=== PATIENT | female | born 1935 | race Caucasian/White ===

== ENCOUNTER 2018-12-05 08:20 | Inpatient (IN) | payer MEDICARE, MEDICAID ==
[~2018-12-05] VITALS: Ht 157.5 cm; Wt 52.6 kg
[2018-12-05] VITALS (10 sets, daily range): BP systolic 111–169; BP diastolic 58–79
[~2018-12-05 08:20] MED LIST: AMLO5TAB88 PO; ASPI-1159 PO; LOSA100T14 PO
[2018-12-05] MEDS ORDERED: SIMV40TA5 PO (10:19)
[2018-12-05] MEDS ORDERED: SITA100T11 PO (10:19)
[2018-12-05] MEDS ORDERED: LEVO500T2 PO (10:19)
[2018-12-05] MEDS ORDERED: LOSA100T14 PO (10:19)
[2018-12-05] MEDS ORDERED: MINO2.5T2 PO (10:19)
[2018-12-05] MEDS ORDERED: CHOL100046 PO (10:19)
[2018-12-05] MEDS ORDERED: METF-414 PO (10:19)
[2018-12-05] MEDS ORDERED: AMLO5TAB88 PO (10:19)
[2018-12-05] MEDS ORDERED: LIDOCAINE HCL 1% 20ML VIAL (Pyxis) INJ ONE (12:43)
[2018-12-05] MEDS ORDERED: IODIXANOL 320MG/ML 100 ML BOTTLE IV ONE (12:43)
[2018-12-05] MEDS ORDERED: FENTANYL CITRATE/PF 50MCG/ML 2ML VIAL ONE (12:57)
[2018-12-05] MEDS ORDERED: MIDAZOLAM HCL 2 MG/2 ML VIAL ONE (12:57)
[2018-12-05] MEDS ORDERED: IOHEXOL-300 100 ML BOTTLE ONE (13:39)
[2018-12-05] MEDS ORDERED: ASPIRIN 325MG TABLET ONE (14:14)
[2018-12-05] MEDS ORDERED: CLOPIDOGREL 75MG TABLET ONE (14:15)
[2018-12-05] MEDS ORDERED: ACETAMINOPHEN 325MG TABLET PO PRN (14:15)
[2018-12-05] MEDS ORDERED: ATROPINE SULFATE 1MG/10ML SYR IV PRN (14:15)
[2018-12-05] MEDS ORDERED: HEPARIN SODIUM 1,000 UNIT/1ML VIAL IV ONE (14:48)
[2018-12-05] MEDS ORDERED: ENALAPRIL 2.5MG/2ML VIAL 2ML IV PRN (18:15)
[2018-12-05] MEDS: AMLODIPINE 5MG TABLET PO SCH (18:30)
[2018-12-05] MEDS ORDERED: CLONIDINE 0.1MG TABLET PO ONE (20:30)
[2018-12-05] MEDS ORDERED: MEDICATION NOT ON FORMULARY EA (Losartan Potassium 100 MG) PO SCH (21:00)
[2018-12-05] MEDS ORDERED: LOSARTAN POTASSIUM 100 MG TABLET PO SCH (21:00)
[2018-12-05] MEDS ORDERED: MEDICATION NOT ON FORMULARY EA (Simvastatin 40 MG) PO SCH (21:00)
[2018-12-05] MEDS ORDERED: ATORVASTATIN CALCIUM 20MG TABLET PO SCH (21:00)
[2018-12-05] MEDS ORDERED: CLONIDINE 0.1MG TABLET PO PRN (23:00)
[2018-12-06] VITALS (7 sets, daily range): BP systolic 128–149; BP diastolic 65–111
[2018-12-06 07:15] LABS: BASOPHILS % 0.3 % (0.0-2.0); EOSINOPHILS % 0.3 % (0.0-5.0); HEMATOCRIT. 34.6 % (36.0-48.0); HEMOGLOBIN. 11.7 g/dL (12.0-16.0); LYMPHOCYTES % 9.1 % (20.0-50.0); MEAN CORPUSCULAR HEMOGLOBIN 29.8 pg (28.0-32.0); MEAN PLATELET VOLUME 8.2 fl (7.4-10.4); MONOCYTES % 8.6 % (2.0-8.0); NEUTROPHILS % 81.7 % (40.0-76.0); PLATELET 295 x1000/uL (130-400); RED BLOOD CELL COUNT 3.93 mill/uL (4.2-5.4)
[2018-12-06 07:52] LABS: CHLORIDE 99 mEq/L (98-107)
[2018-12-06] MEDS ORDERED: AMLODIPINE 5MG TABLET PO SCH (09:00)
[2018-12-06] MEDS ORDERED: ASPIRIN 325MG TABLET PO SCH (09:00)
[2018-12-06] MEDS ORDERED: MEDICATION NOT ON FORMULARY EA (Amlodipine Besylate 5 MG) PO SCH (09:00)
[2018-12-06] MEDS ORDERED: MINOXIDIL 2.5MG TABLET PO SCH (09:00)
[2018-12-06] MEDS ORDERED: MINOXIDIL 2.5 MG PO SCH (09:00)
[2018-12-06] MEDS: AMLODIPINE 5MG TABLET PO SCH (09:18)
== END 2018-12-06 11:07 | disposition home or self-care (01) | DRG 253 ==
LOC: CCL 08:20 → 3WST 08:21
PROVIDERS: ADMIT Internal Medicine; ATTEND Specialist
PROC: B41F1ZZ Fluoroscopy of Right Lower Extremity Arteries using Low Osmolar Contrast (ICD-10-PCS; principal; 2018-12-05)
PROC: 047P3ZZ Dilation of Right Anterior Tibial Artery, Percutaneous Approach (ICD-10-PCS; 2018-12-05)
PROC: 047M3ZZ Dilation of Right Popliteal Artery, Percutaneous Approach (ICD-10-PCS; 2018-12-05)
DX: E11.51 Type 2 diabetes mellitus with diabetic peripheral angiopathy without gangrene (principal); L97.419 Non-pressure chronic ulcer of right heel and midfoot with unspecified severity; I70.234 Atherosclerosis of native arteries of right leg with ulceration of heel and midfoot; I25.10 Atherosclerotic heart disease of native coronary artery without angina pectoris; I11.9 Hypertensive heart disease without heart failure; E78.5 Hyperlipidemia, unspecified; E11.621 Type 2 diabetes mellitus with foot ulcer; F03.90 Unspecified dementia, unspecified severity, without behavioral disturbance, psychotic disturbance, mood disturbance, and anxiety; Z89.432 Acquired absence of left foot; I25.2 Old myocardial infarction; Z88.0 Allergy status to penicillin
CPT/HCPCS: 36415; 37228; 75710; 80048; 82962; 85347; C1725; C1760; C1769; C1893; C1894; J1644; J2250; J3010; J3490; Q9967; A4315

== ENCOUNTER 2018-12-07 20:52 | Inpatient (IN) | payer MEDICARE, MEDICAID ==
[~2018-12-07] VITALS: Ht 154.9 cm; Wt 57.8 kg
[~2018-12-07 20:52] MED LIST changes: -ASPI-1159 PO; +CHOL100046 PO; +LEVO500T2 PO; +METF-414 PO; +MINO2.5T2 PO; +SIMV40TA5 PO; +SITA100T11 PO
[2018-12-07] MEDS ORDERED: SODIUM CHLORIDE 0.9% 1,000 ML IV ONE (22:48)
[2018-12-07 23:35] LABS: HEMATOCRIT. 35.2 % (36.0-48.0); HEMOGLOBIN. 11.8 g/dL (12.0-16.0); MEAN CORPUSCULAR HEMOGLOBIN 29.8 pg (28.0-32.0); MEAN PLATELET VOLUME 8.4 fl (7.4-10.4); PLATELET 333 x1000/uL (130-400); RED BLOOD CELL COUNT 3.95 mill/uL (4.2-5.4); RED CELL DISTRIBUTION WIDTH 13.1 % (11.6-14.6)
[2018-12-07 23:38] LABS: INR 1.1; PROTHROMBIN TIME 11.3 sec (9.1-11.1)
[2018-12-07 23:39] LABS: CHLORIDE 95 mEq/L (98-107)
[2018-12-07 23:48] LABS: BETA HYDROXYBUTYRATE 0.6 mMol/L (0.0-0.3)
[2018-12-08] MEDS ORDERED: LORAZEPAM 2MG/ML CPJ IV ONE
[2018-12-08] MEDS ORDERED: SODIUM CHLORIDE 0.9% 1,000 ML IV ONE
[2018-12-08] MEDS ORDERED: INSULIN REGULAR (HUMULIN R) 300UNITS/3ML SUBCUT ONE ×2 (00:30→02:30)
[2018-12-08 00:39] LABS: CLARITY URINE CLEAR (CLEAR); COLOR URINE YELLOW (YELLOW); KETONES URINE TRACE (NEGATIVE); LEUKOCYTE ESTERASE URINE NEGATIVE (NEGATIVE); NITRITE URINE POSITIVE (NEGATIVE); OCCULT BLOOD URINE 1+ (NEGATIVE); PROTEIN URINE 2+ (NEGATIVE); SPECIFIC GRAVITY URINE 1.027 (1.005-1.030); UROBILINOGEN URINE 0.2 E.U./dL (0.2-1.0)
[2018-12-08] MEDS: AZTREONAM 2 GM in DEXT 5% WATER 100 ML IV SCH ×4 (00:44→17:53)
[2018-12-08 01:49] LABS: PLATELET ESTIMATE NORMAL
[2018-12-08] MEDS ORDERED: CLONIDINE 0.1MG TABLET PO PRN (13:15)
[2018-12-08] MEDS ORDERED: MAGNESIUM/ALUMINUM HYDROXIDE/SIMETHICONE 30ML UDC PO PRN (13:15)
[2018-12-08] MEDS ORDERED: DEXTROSE 50% WATER 50ML SYRINGE IV PRN (13:15)
[2018-12-08] MEDS ORDERED: VANCOMYCIN 1 G PREMIX 200 ML IV SCH ×2 (13:15)
[2018-12-08] MEDS ORDERED: ONDANSETRON HCL 4MG/2ML INJ IV PRN (13:15)
[2018-12-08] MEDS ORDERED: DIPHENHYDRAMINE 50MG/ML VIAL IV PRN (13:15)
[2018-12-08] MEDS: ACETAMINOPHEN 325MG TABLET PO PRN (15:58)
[2018-12-08] MEDS: VANCOMYCIN 500 MG PREMIX 100 ML IV SCH ×2 (16:30→17:55)
[2018-12-08] MEDS ORDERED: AZTREONAM 2 GM in DEXT 5% WATER 100 ML IV NR (17:00)
[2018-12-08] MEDS: BLOOD SUGAR DIAGNOSTIC STRIP TEST SCH (17:00)
[2018-12-08] MEDS ORDERED: INSULIN GLARGINE UD 100 UNITS/ML SYR SUBCUT SCH (22:00)
[2018-12-09 04:24] LABS: BASOPHILS % 0.3 % (0.0-2.0); EOSINOPHILS % 0.4 % (0.0-5.0); HEMATOCRIT. 34.2 % (36.0-48.0); HEMOGLOBIN. 11.4 g/dL (12.0-16.0); LYMPHOCYTES % 7.5 % (20.0-50.0); MEAN CORPUSCULAR HEMOGLOBIN 29.6 pg (28.0-32.0); MEAN CORPUSCULAR VOLUME 88.7 fL (81.0-99.0); MEAN PLATELET VOLUME 8.1 fl (7.4-10.4); MONOCYTES % 6.5 % (2.0-8.0); NEUTROPHILS % 85.3 % (40.0-76.0); PLATELET 298 x1000/uL (130-400); RED BLOOD CELL COUNT 3.85 mill/uL (4.2-5.4)
[2018-12-09 04:32] LABS: CHLORIDE 106 mEq/L (98-107)
[2018-12-09] MEDS ORDERED: AZTREONAM 2 GM in DEXT 5% WATER 100 ML IV SCH (05:00)
[2018-12-09] MEDS ORDERED: AMLODIPINE 5MG TABLET PO SCH (09:00)
[2018-12-09] MEDS ORDERED: LEVOFLOXACIN 250MG PREMIX 50 ML IV SCH (11:00)
[2018-12-09] MEDS ORDERED: LEVOFLOXACIN 500MG PREMIX 100 ML IV SCH (11:30)
[2018-12-09] MEDS: BLOOD SUGAR DIAGNOSTIC STRIP TEST SCH ×3 (12:10→21:18)
[2018-12-09 12:35] VITALS: BP 164/65
[2018-12-09] MEDS: ACETAMINOPHEN 325MG TABLET PO PRN (13:11)
[2018-12-09] MEDS: LORAZEPAM 2MG/ML CPJ IV PRN (13:13)
[2018-12-09] MEDS ORDERED: DIATR MEGLU/DIATRIZOATE SOLN 30ML PO SCH (13:15)
[2018-12-09] MEDS ORDERED: LEVOFLOXACIN 750MG PREMIX 150 ML IV SCH (13:30)
[2018-12-09] MEDS: INSULIN LISPRO 100 UNITS/ML SUBCUT SCH ×2 (13:31→18:03)
[2018-12-09] MEDS ORDERED: LACTULOSE 20G/30ML UDC PO SCH (14:00)
[2018-12-09 16:00] VITALS: BP 158/66
[2018-12-09] MEDS: VANCOMYCIN 500 MG PREMIX 100 ML IV SCH ×2 (16:00→21:18)
[2018-12-09] MEDS ORDERED: IOHEXOL-300 100 ML BOTTLE ONE (17:17)
[2018-12-09] MEDS: ENOXAPARIN 40MG/0.4ML SYR SUBCUT SCH (17:33)
[2018-12-09] MEDS: AMLODIPINE 5MG TABLET PO SCH (17:34)
[2018-12-09] MEDS: SODIUM CHLORIDE 0.9% 1,000 ML IV SCH ×3 (17:35→19:11)
[2018-12-09] MEDS: HYDROCODONE/ACETAMINOPHEN 5/325MG TABLET PO PRN (19:09)
[2018-12-09 20:00] VITALS: BP 143/60
[2018-12-09] MEDS ORDERED: CEFEPIME 2,000 MG in DEXT 5% WATER 100 ML IV SCH (20:00)
[2018-12-09] MEDS: FAMOTIDINE 20MG TABLET PO SCH ×2 (21:18→21:19)
[2018-12-09] MEDS ORDERED: INSULIN GLARGINE UD 100 UNITS/ML SYR SUBCUT SCH (22:00)
[2018-12-10] VITALS: BP 147/79
[2018-12-10] MEDS: CEFEPIME 2,000 MG in DEXT 5% WATER 100 ML IV SCH ×3 (00:14→21:05)
[2018-12-10] MEDS: INSULIN LISPRO 100 UNITS/ML SUBCUT SCH ×5 (00:19→21:00)
[2018-12-10] MEDS: INSULIN GLARGINE UD 100 UNITS/ML SYR SUBCUT SCH ×3 (00:20→22:48)
[2018-12-10] MEDS: HYDROCODONE/ACETAMINOPHEN 5/325MG TABLET PO PRN ×2 (01:53→12:04)
[2018-12-10] MEDS: SODIUM CHLORIDE 0.9% 1,000 ML IV SCH ×2 (03:12→16:35)
[2018-12-10] MEDS: LORAZEPAM 2MG/ML CPJ IV PRN ×2 (03:32→13:09)
[2018-12-10 04:00] VITALS: BP 147/76
[2018-12-10 05:49] LABS: BASOPHILS % 0.2 % (0.0-2.0); EOSINOPHILS % 2.9 % (0.0-5.0); HEMATOCRIT. 31.8 % (36.0-48.0); HEMOGLOBIN. 10.7 g/dL (12.0-16.0); LYMPHOCYTES % 12.3 % (20.0-50.0); MEAN CORPUSCULAR HEMOGLOBIN 29.9 pg (28.0-32.0); MEAN CORPUSCULAR VOLUME 88.4 fL (81.0-99.0); MEAN PLATELET VOLUME 8.2 fl (7.4-10.4); MONOCYTES % 9.3 % (2.0-8.0); NEUTROPHILS % 75.3 % (40.0-76.0); PLATELET 333 x1000/uL (130-400); RED CELL DISTRIBUTION WIDTH 12.7 % (11.6-14.6)
[2018-12-10 05:59] LABS: CHLORIDE 107 mEq/L (98-107)
[2018-12-10] MEDS: BLOOD SUGAR DIAGNOSTIC STRIP TEST SCH ×4 (06:35→21:06)
[2018-12-10 08:30] VITALS: BP 170/60
[2018-12-10] MEDS: AMLODIPINE 5MG TABLET PO SCH ×2 (09:04→17:48)
[2018-12-10] MEDS: DOCUSATE SODIUM SUGAR FREE 100MG/10ML UDC PO SCH (09:05)
[2018-12-10] MEDS: VANCOMYCIN 500 MG PREMIX 100 ML IV SCH (10:59)
[2018-12-10 11:57] VITALS: BP 118/58
[2018-12-10 16:00] VITALS: BP 126/48
[2018-12-10] MEDS: ENOXAPARIN 40MG/0.4ML SYR SUBCUT SCH (17:47)
[2018-12-10 20:00] VITALS: BP 165/66
[2018-12-10] MEDS: CARVEDILOL 3.125 MG TABLET PO SCH (21:06)
[2018-12-10] MEDS: FAMOTIDINE 20MG TABLET PO SCH (21:06)
[2018-12-11] VITALS: BP 139/51
[2018-12-11] MEDS ORDERED: VANCOMYCIN 1 G PREMIX 200 ML IV SCH (02:00)
[2018-12-11 04:00] VITALS: BP 147/66
[2018-12-11] MEDS: BLOOD SUGAR DIAGNOSTIC STRIP TEST SCH ×3 (06:40→17:10)
[2018-12-11] MEDS: INSULIN LISPRO 100 UNITS/ML SUBCUT SCH ×3 (06:40→17:24)
[2018-12-11 06:56] LABS: CHLORIDE 105 mEq/L (98-107)
[2018-12-11 07:08] LABS: LDL CHOLESTEROL 63 mg/dL (5-100)
[2018-12-11 07:09] LABS: HDL CHOLESTEROL 26 mg/dL (40-59)
[2018-12-11 07:12] LABS: T4 FREE 1.55 ng/dL (0.76-1.46)
[2018-12-11 07:42] LABS: HEMATOCRIT 30.9 % (36.0-48.0); HEMOGLOBIN 10.5 g/dL (12.0-16.0); MEAN CORPUSCULAR HEMOGLOBIN 29.8 pg (28.0-32.0); MEAN CORPUSCULAR VOLUME 87.9 fL (81.0-99.0); PLATELET 329 x1000/uL (130-400); RED BLOOD CELL COUNT 3.51 mill/uL (4.2-5.4); RED CELL DISTRIBUTION WIDTH 12.9 % (11.6-14.6)
[2018-12-11] MEDS: SODIUM CHLORIDE 0.9% 1,000 ML IV SCH (08:01)
[2018-12-11 08:38] VITALS: BP 164/63
[2018-12-11] MEDS: CEFEPIME 2,000 MG in DEXT 5% WATER 100 ML IV SCH (08:41)
[2018-12-11] MEDS: DOCUSATE SODIUM SUGAR FREE 100MG/10ML UDC PO SCH (08:48)
[2018-12-11] MEDS: CARVEDILOL 3.125 MG TABLET PO SCH (08:49)
[2018-12-11] MEDS: AMLODIPINE 5MG TABLET PO SCH (08:49)
[2018-12-11] MEDS: INSULIN GLARGINE UD 100 UNITS/ML SYR SUBCUT SCH (10:00)
[2018-12-11] MEDS ORDERED: POTASSIUM CHLORIDE 20MEQ TABLET SR PO NR (10:45)
[2018-12-11 12:00] VITALS: BP 146/73
[2018-12-11] MEDS: ACETAMINOPHEN 325MG TABLET PO PRN (13:01)
[2018-12-11 16:19] VITALS: BP 149/62
[2018-12-11] MEDS: ENOXAPARIN 40MG/0.4ML SYR SUBCUT SCH (17:18)
[2018-12-11 17:48] VITALS: BP 152/76
== END 2018-12-11 18:49 | disposition home or self-care (01) | DRG 871 ==
LOC: ER 20:52 → EDBEDREQTM 12-08 00:36 → EDBEDREQSVC 12-08 00:36 → EDBEDREQDT 12-08 00:36 → EDBEDREQ 12-08 00:36 → EDBEDREQTM 12-08 00:42 → 8WST 12-09 00:40 → EDBEDREQSVC 12-09 10:00 → ENRESERV 12-09 10:48
PROVIDERS: ADMIT Internal Medicine; ATTEND Internal Medicine
DX: A40.1 Sepsis due to streptococcus, group B (principal); G93.41 Metabolic encephalopathy; E43 Unspecified severe protein-calorie malnutrition; N39.0 Urinary tract infection, site not specified; M84.48XA Pathological fracture, other site, initial encounter for fracture; B95.5 Unspecified streptococcus as the cause of diseases classified elsewhere; H66.92 Otitis media, unspecified, left ear; H60.92 Unspecified otitis externa, left ear; D69.6 Thrombocytopenia, unspecified; E11.51 Type 2 diabetes mellitus with diabetic peripheral angiopathy without gangrene; E11.65 Type 2 diabetes mellitus with hyperglycemia; E78.5 Hyperlipidemia, unspecified; E87.6 Hypokalemia; F03.90 Unspecified dementia, unspecified severity, without behavioral disturbance, psychotic disturbance, mood disturbance, and anxiety; H44.521 Atrophy of globe, right eye; H70.92 Unspecified mastoiditis, left ear; I10 Essential (primary) hypertension; I51.3 Intracardiac thrombosis, not elsewhere classified; E11.621 Type 2 diabetes mellitus with foot ulcer; M43.17 Spondylolisthesis, lumbosacral region; J32.1 Chronic frontal sinusitis; K59.00 Constipation, unspecified; K82.8 Other specified diseases of gallbladder; K86.9 Disease of pancreas, unspecified; M81.0 Age-related osteoporosis without current pathological fracture; N61.0 Mastitis without abscess; Z86.718 Personal history of other venous thrombosis and embolism; Z88.0 Allergy status to penicillin; Z89.432 Acquired absence of left foot; Z68.24 Body mass index [BMI] 24.0-24.9, adult; Z79.2 Long term (current) use of antibiotics; Z79.899 Other long term (current) drug therapy
CPT/HCPCS: 36415; 70486; 71045; 74176; 74177; 80048; 80061; 80202; 82010; 82105; 82378; 82962; 83036; 83605; 83735; 83880; 83930; 84439; 84443; 84484; 85027; 86301; 87804; 93005; 93970; G0378; J0692; J1200; J1650; J1815; J1956; J2060; J2405; J3370; J3490; J7030; J7050; J7060; Q9963; Q9967

== ENCOUNTER 2019-06-11 08:48 | Inpatient (IN) | payer MEDICARE, MEDICAID ==
[2019-06-11] VITALS (15 sets, daily range): BP systolic 123–147; BP diastolic 48–73
[~2019-06-11] VITALS: Ht 157.5 cm; Wt 59.4 kg
[~2019-06-11 08:48] MED LIST changes: -LEVO500T2 PO; -LOSA100T14 PO; +LOSA100T32 PO
[2019-06-11] MEDS ORDERED: ASPI-1393 PO (10:33)
[2019-06-11] MEDS ORDERED: LIDOCAINE HCL 1% 20ML VIAL (Pyxis) INJ ONE (10:34)
[2019-06-11] MEDS ORDERED: IODIXANOL 320MG/ML 100 ML BOTTLE IV ONE (10:35)
[2019-06-11] MEDS ORDERED: FENTANYL CITRATE/PF 50MCG/ML 2ML VIAL ONE (10:37)
[2019-06-11] MEDS ORDERED: MIDAZOLAM HCL 2 MG/2 ML VIAL ONE (10:37)
[2019-06-11] MEDS ORDERED: ASPIRIN 325MG EC TABLET PO ONE (12:25)
[2019-06-11] MEDS ORDERED: CLOPIDOGREL 75MG TABLET ONE (12:26)
[2019-06-11] MEDS ORDERED: ATROPINE SULFATE 1MG/10ML SYR IV PRN (12:45)
[2019-06-11] MEDS ORDERED: ACETAMINOPHEN 325MG TABLET PO PRN (12:45)
[2019-06-11] MEDS ORDERED: ONDANSETRON HCL 4MG/2ML INJ IV PRN (12:45)
[2019-06-11] MEDS ORDERED: DEXTROSE 50% WATER 50ML SYRINGE IV PRN (16:00)
[2019-06-11] MEDS: BLOOD SUGAR DIAGNOSTIC STRIP TEST SCH ×2 (17:21→22:40)
[2019-06-11] MEDS: INSULIN LISPRO 100 UNITS/ML SUBCUT SCH ×2 (17:36→22:53)
[2019-06-11] MEDS ORDERED: ATORVASTATIN CALCIUM 20MG TABLET PO SCH (21:00)
[2019-06-11] MEDS ORDERED: LOSARTAN POTASSIUM 100 MG TABLET PO SCH (21:00)
[2019-06-12] VITALS (8 sets, daily range): BP systolic 106–151; BP diastolic 44–60
[2019-06-12] MEDS: BLOOD SUGAR DIAGNOSTIC STRIP TEST SCH (05:41)
[2019-06-12 05:49] LABS: CHLORIDE 107 mEq/L (98-107)
[2019-06-12 08:09] LABS: BASOPHILS % 0.3 % (0.0-2.0); EOSINOPHILS % 1.2 % (0.0-5.0); HEMATOCRIT. 38.6 % (36.0-48.0); HEMOGLOBIN. 13.2 g/dL (12.0-16.0); LYMPHOCYTES % 18.9 % (20.0-50.0); MEAN CORPUSCULAR HEMOGLOBIN 29.1 pg (28.0-32.0); MEAN CORPUSCULAR VOLUME 85.5 fL (81.0-99.0); MEAN PLATELET VOLUME 8.7 fl (7.4-10.4); MONOCYTES % 7.4 % (2.0-8.0); NEUTROPHILS % 72.2 % (40.0-76.0); PLATELET 230 x1000/uL (130-400); RED BLOOD CELL COUNT 4.52 mill/uL (4.2-5.4); RED CELL DISTRIBUTION WIDTH 13.8 % (11.6-14.6)
[2019-06-12] MEDS: INSULIN LISPRO 100 UNITS/ML SUBCUT SCH (08:28)
[2019-06-12] MEDS ORDERED: AMLODIPINE 5MG TABLET PO SCH (09:00)
[2019-06-12] MEDS ORDERED: ASPIRIN 325MG TABLET PO SCH (09:00)
[2019-06-12] MEDS ORDERED: CLOPIDOGREL 75MG TABLET PO SCH (09:00)
[2019-06-12] MEDS ORDERED: MEDICATION NOT ON FORMULARY EA (Simvastatin 40 MG) PO SCH (09:00)
[2019-06-12] MEDS ORDERED: MINOXIDIL 2.5MG TABLET PO SCH (09:00)
== END 2019-06-12 10:55 | disposition home or self-care (01) | DRG 253 ==
LOC: CCL 08:48 → 3WST 08:49
PROVIDERS: ADMIT Internal Medicine; ATTEND Specialist
PROC: 047T34Z Dilation of Right Peroneal Artery with Drug-eluting Intraluminal Device, Percutaneous Approach (ICD-10-PCS; principal; 2019-06-11)
PROC: 047M34Z Dilation of Right Popliteal Artery with Drug-eluting Intraluminal Device, Percutaneous Approach (ICD-10-PCS; 2019-06-11)
PROC: 047P35Z Dilation of Right Anterior Tibial Artery with Two Drug-eluting Intraluminal Devices, Percutaneous Approach (ICD-10-PCS; 2019-06-11)
DX: E11.51 Type 2 diabetes mellitus with diabetic peripheral angiopathy without gangrene (principal); G93.40 Encephalopathy, unspecified; E78.5 Hyperlipidemia, unspecified; F03.90 Unspecified dementia, unspecified severity, without behavioral disturbance, psychotic disturbance, mood disturbance, and anxiety; I11.9 Hypertensive heart disease without heart failure; I25.10 Atherosclerotic heart disease of native coronary artery without angina pectoris; I70.201 Unspecified atherosclerosis of native arteries of extremities, right leg; J44.9 Chronic obstructive pulmonary disease, unspecified; K86.9 Disease of pancreas, unspecified; I25.2 Old myocardial infarction; Z89.432 Acquired absence of left foot; Z88.0 Allergy status to penicillin; Z79.899 Other long term (current) drug therapy
CPT/HCPCS: 36415; 37230; 37234; 75710; 80048; 82962; 85347; 87070; C1725; C1760; C1769; C1874; C1887; C1893; C1894; J1644; J1815; J2250; J2405; J3010; J3490; Q9967

== ENCOUNTER 2020-04-04 10:43 | Emergency (ER) | payer MEDICARE, MEDICAID ==
[~2020-04-04] VITALS: Ht 157.5 cm; Wt 60.0 kg
[~2020-04-04 10:43] MED LIST changes: +ASPI-1497 PO; +SIMV-46 PO; -SIMV40TA5 PO; -SITA100T11 PO
[2020-04-04 10:44] VITALS: BP 157/52
== END 2020-04-04 12:58 | disposition home or self-care (01) ==
LOC: ER 10:43
DX: R05 Cough (principal); E78.00 Pure hypercholesterolemia, unspecified; E11.9 Type 2 diabetes mellitus without complications; I10 Essential (primary) hypertension; Z98.890 Other specified postprocedural states; Z79.899 Other long term (current) drug therapy; Z88.0 Allergy status to penicillin
CPT/HCPCS: 71045; 87635; 99284; C9803

== ENCOUNTER 2020-06-28 17:08 | Inpatient (IN) | payer MEDICARE, MEDICAID ==
[~2020-06-28] VITALS: Ht 162.6 cm; Wt 64.1 kg
[2020-06-28 19:04] LABS: BASOPHILS % 0.4 % (0.0-2.0); HEMATOCRIT. 34.3 % (36.0-48.0); HEMOGLOBIN. 11.3 g/dL (12.0-16.0); LYMPHOCYTES % 19.2 % (20.0-50.0); MEAN CORPUSCULAR HEMOGLOBIN 27.6 pg (28.0-32.0); MEAN CORPUSCULAR VOLUME 83.8 fL (81.0-99.0); MEAN PLATELET VOLUME 7.7 fl (7.4-10.4); MONOCYTES % 6.5 % (2.0-8.0); NEUTROPHILS % 71.9 % (40.0-76.0); PLATELET 400 x1000/uL (130-400); RED CELL DISTRIBUTION WIDTH 15.9 % (11.6-14.6)
[2020-06-28 19:10] LABS: CHLORIDE 105 mEq/L (98-107)
[2020-06-28] MEDS ORDERED: DEXTROSE 50% WATER 50ML SYRINGE IV PRN (20:45)
[2020-06-28] MEDS ORDERED: CLONIDINE 0.1MG TABLET PO PRN (20:45)
[2020-06-28] MEDS ORDERED: ACETAMINOPHEN 325MG TABLET PO PRN (20:45)
[2020-06-28] MEDS ORDERED: ONDANSETRON HCL 4MG/2ML INJ IV PRN (20:45)
[2020-06-28] MEDS: CARVEDILOL 3.125 MG TABLET PO SCH (21:00)
[2020-06-28] MEDS: HEPARIN 5000 UNITS/ML VIAL SUBCUT SCH (21:00)
[2020-06-28] MEDS ORDERED: TRAZODONE HCL 50MG TABLET PO PRN (21:00)
[2020-06-28] MEDS ORDERED: INSULIN GLARGINE UD 100 UNITS/ML SYR SUBCUT SCH (22:00)
[2020-06-28] MEDS: BLOOD SUGAR DIAGNOSTIC STRIP TEST SCH (22:00)
[2020-06-28] MEDS: INSULIN LISPRO 100 UNITS/ML SUBCUT SCH (22:05)
[2020-06-28] MEDS: FUROSEMIDE 40MG/4ML VIAL IV SCH (22:05)
[2020-06-29] VITALS (7 sets, daily range): BP systolic 138–173; BP diastolic 54–65
[2020-06-29] MEDS: FUROSEMIDE 40MG/4ML VIAL IV SCH ×3 (06:40→17:24)
[2020-06-29] MEDS: BLOOD SUGAR DIAGNOSTIC STRIP TEST SCH ×5 (06:41→20:25)
[2020-06-29] MEDS: INSULIN LISPRO 100 UNITS/ML SUBCUT SCH ×5 (06:41→21:40)
[2020-06-29] MEDS: CARVEDILOL 3.125 MG TABLET PO SCH (09:35)
[2020-06-29] MEDS: HEPARIN 5000 UNITS/ML VIAL SUBCUT SCH ×2 (09:36→20:23)
[2020-06-29 09:59] LABS: BASOPHILS % 0.4 % (0.0-2.0); EOSINOPHILS % 2.2 % (0.0-5.0); HEMATOCRIT. 35.6 % (36.0-48.0); HEMOGLOBIN. 11.6 g/dL (12.0-16.0); LYMPHOCYTES % 17.8 % (20.0-50.0); MEAN CORPUSCULAR HEMOGLOBIN 27.5 pg (28.0-32.0); MEAN CORPUSCULAR VOLUME 84.4 fL (81.0-99.0); MONOCYTES % 5.1 % (2.0-8.0); NEUTROPHILS % 74.5 % (40.0-76.0); RED BLOOD CELL COUNT 4.21 mill/uL (4.2-5.4); RED CELL DISTRIBUTION WIDTH 16.4 % (11.6-14.6)
[2020-06-29 10:07] LABS: CHLORIDE 107 mEq/L (98-107)
[2020-06-29] MEDS ORDERED: CARVEDILOL 3.125 MG TABLET PO NR (12:15)
[2020-06-29] MEDS ORDERED: LEVOFLOXACIN 500MG TABLET PO SCH (12:15)
[2020-06-29] MEDS ORDERED: MAGNESIUM 2 G PREMIX 50 ML IV NR (14:00)
[2020-06-29] MEDS ORDERED: FUROSEMIDE 40MG/4ML VIAL IVP SCH (14:15)
[2020-06-29] MEDS: AMLODIPINE 5MG TABLET PO SCH (15:29)
[2020-06-29] MEDS: ALBUTEROL 6.7GM HFA INHALER ORI SCH (17:18)
[2020-06-29] MEDS: AZITHROMYCIN 500 MG TABLET PO SCH (17:24)
[2020-06-29] MEDS: CARVEDILOL 6.25 MG TABLET PO SCH (20:25)
[2020-06-29] MEDS: INSULIN GLARGINE UD 100 UNITS/ML SYR SUBCUT SCH (21:56)
[2020-06-30 04:00] VITALS: BP 145/55
[2020-06-30] MEDS: INSULIN LISPRO 100 UNITS/ML SUBCUT SCH ×4 (07:10→21:37)
[2020-06-30] MEDS: BLOOD SUGAR DIAGNOSTIC STRIP TEST SCH ×4 (07:14→21:38)
[2020-06-30 07:22] LABS: BASOPHILS % 0.4 % (0.0-2.0); EOSINOPHILS % 1.7 % (0.0-5.0); HEMATOCRIT. 33.4 % (36.0-48.0); HEMOGLOBIN. 11.1 g/dL (12.0-16.0); LYMPHOCYTES % 14.2 % (20.0-50.0); MEAN CORPUSCULAR HEMOGLOBIN 27.6 pg (28.0-32.0); MEAN CORPUSCULAR VOLUME 83.2 fL (81.0-99.0); MEAN PLATELET VOLUME 7.9 fl (7.4-10.4); MONOCYTES % 6.5 % (2.0-8.0); NEUTROPHILS % 77.2 % (40.0-76.0); PLATELET 363 x1000/uL (130-400); RED BLOOD CELL COUNT 4.01 mill/uL (4.2-5.4); RED CELL DISTRIBUTION WIDTH 16.3 % (11.6-14.6)
[2020-06-30 07:23] LABS: CHLORIDE 103 mEq/L (98-107)
[2020-06-30] MEDS: FUROSEMIDE 40MG/4ML VIAL IV SCH ×2 (07:37→17:13)
[2020-06-30 08:00] VITALS: BP 159/54
[2020-06-30] MEDS: AMLODIPINE 5MG TABLET PO SCH ×2 (08:28→21:37)
[2020-06-30] MEDS: HEPARIN 5000 UNITS/ML VIAL SUBCUT SCH ×2 (08:28→21:37)
[2020-06-30] MEDS: CARVEDILOL 6.25 MG TABLET PO SCH ×2 (08:28→21:37)
[2020-06-30] MEDS: AZITHROMYCIN 500 MG TABLET PO SCH (08:29)
[2020-06-30 12:00] VITALS: BP 133/53
[2020-06-30] MEDS: LEVOFLOXACIN 250MG TABLET PO SCH (12:00)
[2020-06-30] MEDS: POTASSIUM CHLORIDE 20MEQ TABLET SR PO SCH ×2 (12:01→16:00)
[2020-06-30] MEDS: LOSARTAN POTASSIUM 50 MG TABLET PO SCH (14:14)
[2020-06-30] MEDS: HYDRALAZINE HCL 25MG TABLET PO SCH ×2 (14:14→21:37)
[2020-06-30 16:00] VITALS: BP 143/61
[2020-06-30] MEDS: ALBUTEROL 6.7GM HFA INHALER ORI SCH (17:50)
[2020-06-30 20:26] VITALS: BP 153/63
[2020-06-30] MEDS: INSULIN GLARGINE UD 100 UNITS/ML SYR SUBCUT SCH (22:00)
[2020-07-01] VITALS: BP 148/58
[2020-07-01] MEDS: ALBUTEROL 6.7GM HFA INHALER ORI SCH ×2 (00:25→06:00)
[2020-07-01 04:00] VITALS: BP 135/61
[2020-07-01 06:35] LABS: CHLORIDE 103 mEq/L (98-107)
[2020-07-01 06:38] LABS: BASOPHILS % 0.4 % (0.0-2.0); EOSINOPHILS % 1.5 % (0.0-5.0); HEMATOCRIT. 34.6 % (36.0-48.0); HEMOGLOBIN. 11.6 g/dL (12.0-16.0); LYMPHOCYTES % 18.3 % (20.0-50.0); MEAN CORPUSCULAR HEMOGLOBIN 27.6 pg (28.0-32.0); MEAN PLATELET VOLUME 7.7 fl (7.4-10.4); NEUTROPHILS % 72.8 % (40.0-76.0); PLATELET 362 x1000/uL (130-400); RED BLOOD CELL COUNT 4.22 mill/uL (4.2-5.4); RED CELL DISTRIBUTION WIDTH 16.5 % (11.6-14.6)
[2020-07-01] MEDS: BLOOD SUGAR DIAGNOSTIC STRIP TEST SCH ×2 (06:38→11:28)
[2020-07-01] MEDS: HYDRALAZINE HCL 25MG TABLET PO SCH ×2 (06:48→13:26)
[2020-07-01] MEDS: FUROSEMIDE 40MG/4ML VIAL IV SCH (06:48)
[2020-07-01] MEDS: INSULIN LISPRO 100 UNITS/ML SUBCUT SCH ×2 (06:49→11:39)
[2020-07-01 08:00] VITALS: BP 111/51
[2020-07-01] MEDS: CARVEDILOL 6.25 MG TABLET PO SCH (08:27)
[2020-07-01] MEDS: HEPARIN 5000 UNITS/ML VIAL SUBCUT SCH (08:28)
[2020-07-01] MEDS: LOSARTAN POTASSIUM 50 MG TABLET PO SCH (08:28)
[2020-07-01] MEDS: AMLODIPINE 5MG TABLET PO SCH (08:28)
[2020-07-01] MEDS ORDERED: POTASSIUM CHLORIDE 20MEQ/PACKET PO NR (11:15)
[2020-07-01] MEDS: LEVOFLOXACIN 250MG TABLET PO SCH (11:33)
[2020-07-01 12:00] VITALS: BP 147/62
[2020-07-01] MEDS ORDERED: LOSA50TA3 PO (12:51)
[2020-07-01] MEDS ORDERED: COR6 PO (12:51)
[2020-07-01] MEDS ORDERED: LANTUSUD SUBCUT (12:51)
[2020-07-01] MEDS ORDERED: HYDR-4134 PO (12:51)
[2020-07-01] MEDS ORDERED: FURO-151 MT (12:51)
[2020-07-01] MEDS ORDERED: LEVO500T2 MT (12:54)
[2020-07-01] MEDS ORDERED: POTASSIUM CHLORIDE 20MEQ TABLET SR PO NR (13:45)
[2020-07-01 13:52] VITALS: BP 147/62
[2020-07-01] MEDS ORDERED: MAGNESIUM 2 G PREMIX 50 ML IV NR (15:00)
[2020-07-01] MEDS ORDERED: INSULIN GLARGINE UD 100 UNITS/ML SYR SUBCUT SCH (22:00)
== END 2020-07-01 14:50 | disposition home or self-care (01) | DRG 871 ==
LOC: ER 17:08 → 7EST 21:00 → EDBEDREQTM 21:11 → EDBEDREQ 21:11 → ENRESERV 21:36 → CANRESERV 21:36 → ENRESERV 06-29 03:19 → 5WST 06-30 22:39
PROVIDERS: ADMIT Internal Medicine; ATTEND Internal Medicine
DX: A41.50 Gram-negative sepsis, unspecified (principal); E11.00 Type 2 diabetes mellitus with hyperosmolarity without nonketotic hyperglycemic-hyperosmolar coma (NKHHC); J96.01 Acute respiratory failure with hypoxia; I50.23 Acute on chronic systolic (congestive) heart failure; N39.0 Urinary tract infection, site not specified; J90 Pleural effusion, not elsewhere classified; I11.0 Hypertensive heart disease with heart failure; Z20.828 Contact with and (suspected) exposure to other viral communicable diseases; E83.42 Hypomagnesemia; E78.00 Pure hypercholesterolemia, unspecified; E11.51 Type 2 diabetes mellitus with diabetic peripheral angiopathy without gangrene; E78.5 Hyperlipidemia, unspecified; F03.90 Unspecified dementia, unspecified severity, without behavioral disturbance, psychotic disturbance, mood disturbance, and anxiety; J44.9 Chronic obstructive pulmonary disease, unspecified; I25.10 Atherosclerotic heart disease of native coronary artery without angina pectoris; E88.09 Other disorders of plasma-protein metabolism, not elsewhere classified; E87.6 Hypokalemia; Z88.0 Allergy status to penicillin; Z79.82 Long term (current) use of aspirin; Z79.84 Long term (current) use of oral hypoglycemic drugs; Z79.899 Other long term (current) drug therapy; Z91.14 Patient's other noncompliance with medication regimen
CPT/HCPCS: 36415; 71045; 80053; 82962; 83036; 83735; 83880; 84484; 85025; 87077; 87186; 87635; 93005; 93306; 94640; 97162; 99285; J1644; J1815; J1940; J2405; J3475

== ENCOUNTER 2022-01-12 04:46 | Inpatient (IN) | payer MEDICARE, MEDICAID ==
[~2022-01-12] VITALS: Ht 152.4 cm; Wt 53.5 kg
[2022-01-12] VITALS (12 sets, daily range): BP systolic 123–168; BP diastolic 67–88
[~2022-01-12 04:46] MED LIST changes: +COR6 PO; +FOSF3PAC MT; +FURO-151 MT; +HYDR-4134 PO; +LANTUSUD SUBCUT; -LOSA100T32 PO; +LOSA50TA3 PO; +SITA50TA3 PO
[2022-01-12] MEDS ORDERED: SODIUM CHLORIDE 0.9% 1,000 ML IV ONE ×2 (05:15→06:30)
[2022-01-12 05:38] LABS: HEMATOCRIT. 38.5 % (36.0-48.0); HEMOGLOBIN. 11.8 g/dL (12.0-16.0); MEAN CORPUSCULAR HEMOGLOBIN 28.3 pg (28.0-32.0); MEAN CORPUSCULAR VOLUME 92.1 fL (81.0-99.0); MEAN PLATELET VOLUME 9.3 fl (7.4-10.4); PLATELET 299 x1000/uL (130-400); RED BLOOD CELL COUNT 4.18 mill/uL (4.2-5.4); RED CELL DISTRIBUTION WIDTH 17.3 % (11.6-14.6)
[2022-01-12 05:44] LABS: CHLORIDE 101 mEq/L (98-107)
[2022-01-12 05:49] LABS: ETHANOL BLOOD < 10 mg/dL
[2022-01-12 05:55] LABS: PLATELET ESTIMATE NORMAL
[2022-01-12] MEDS ORDERED: INSULIN REGULAR (HUMULIN R) 300UNITS/3ML VIAL IV ONE ×2 (06:15→08:15)
[2022-01-12] MEDS ORDERED: CALCIUM CHLORIDE 1GM/10ML SYR IV ONE (06:15)
[2022-01-12] MEDS ORDERED: SODIUM POLYSTYRENE SULFONATE 15 G/60 ML BOT PO ONE (06:15)
[2022-01-12] MEDS ORDERED: ALBUTEROL (0.083%) 2.5MG/3ML NEB HHN ONE (06:15)
[2022-01-12] MEDS ORDERED: SODIUM BICARBONATE 8.4% 1 MEQ/ML 50ML SYR IV ONE (06:15)
[2022-01-12 06:34] LABS: CLARITY URINE CLEAR (CLEAR); COLOR URINE YELLOW (YELLOW); KETONES URINE NEGATIVE (NEGATIVE); LEUKOCYTE ESTERASE URINE 1+ (NEGATIVE); NITRITE URINE NEGATIVE (NEGATIVE); OCCULT BLOOD URINE NEGATIVE (NEGATIVE); PROTEIN URINE TRACE (NEGATIVE); SPECIFIC GRAVITY URINE 1.025 (1.005-1.030); UROBILINOGEN URINE 0.2 E.U./dL (0.2-1.0)
[2022-01-12 06:46] LABS: *AMPHETAMINES SCREEN URINE NEGATIVE (NEGATIVE); *BARBITURATES SCREEN URINE NEGATIVE (NEGATIVE); *BENZODIAZEPINES SCREEN URINE NEGATIVE (NEGATIVE); *COCAINE SCREEN URINE NEGATIVE (NEGATIVE); METHADONE URINE SCREEN NEGATIVE (NEGATIVE); OPIATES URINE SCREEN NEGATIVE (NEGATIVE); PHENCYCLIDINE URINE SCREEN NEGATIVE (NEGATIVE)
[2022-01-12 06:47] LABS: CANNABINOID URINE SCREEN NEGATIVE (NEGATIVE)
[2022-01-12] MEDS ORDERED: ENOXAPARIN 40MG/0.4ML SYR SUBCUT ONE (07:00)
[2022-01-12] MEDS ORDERED: DOCUSATE SODIUM 100MG CAPSULE PO PRN (07:45)
[2022-01-12] MEDS ORDERED: NITROGLYCERIN 0.4MG TABLET SL SL PRN (07:45)
[2022-01-12] MEDS ORDERED: IPRATROPIUM/ALBUTEROL 0.5-3(2.5)MG/3ML NEB NEB PRN (07:45)
[2022-01-12] MEDS ORDERED: ACETAMINOPHEN 325MG TABLET PO PRN ×2 (07:45)
[2022-01-12] MEDS ORDERED: MAGNESIUM/ALUMINUM HYDROXIDE/SIMETHICONE 30ML UDC PO PRN (07:45)
[2022-01-12] MEDS ORDERED: GUAIFENESIN 200MG/10ML SUGAR FREE UDC PO PRN (07:45)
[2022-01-12] MEDS ORDERED: ONDANSETRON HCL 4MG/2ML INJ IV PRN (07:45)
[2022-01-12] MEDS ORDERED: LEVOFLOXACIN 500MG PREMIX 100 ML IV NR ×2 (08:00→18:00)
[2022-01-12 08:21] LABS: T4 FREE 1.14 ng/dL (0.76-1.46)
[2022-01-12] MEDS ORDERED: CEFTRIAXONE 1 G PREMIX 50 ML IV SCH (09:00)
[2022-01-12 09:02] LABS: BG CARBOXYHEMOGLOBIN 0.3 % (0.5-1.5); BG DEOXYHEMOGLOBIN 4.6 % (0.0-5.0); BG HCO3 ACT 13.6 mmol/L (22.0-26.0); BG METHEMOGLOBIN 0.3 % (0.0-1.5); BG OXYGEN SATURATION 95.4 % (92.0-98.5); BG OXYHEMOGLOBIN 94.8 % (94.0-97.0); BG PCO2 30.2 mmHg (35.0-45.0); BG PH 7.272 (7.350-7.450); BG PO2 85.4 mmHg (75.0-100.0); BG SAMPLE SITE RIGHT RADIAL; BG TOTAL HEMOGLOBIN 11.2 g/dL (12.0-18.0); BG VENT MODE ROOM AIR
[2022-01-12 09:04] LABS: FOLIC ACID (FOLATE) SERUM >20 ng/mL ng/mL (>5.38)
[2022-01-12 09:16] LABS: VITAMIN B12 SERUM > 2000.0 pg/mL (211-911)
[2022-01-12] MEDS: BLOOD SUGAR DIAGNOSTIC STRIP TEST SCH ×3 (11:14→21:21)
[2022-01-12] MEDS: PANTOPRAZOLE SODIUM 40 MG/VIAL IV SCH (11:34)
[2022-01-12] MEDS: ASCORBIC ACID 500 MG TABLET PO SCH ×2 (11:34→21:25)
[2022-01-12] MEDS: ASPIRIN 325MG EC TABLET PO SCH (11:34)
[2022-01-12] MEDS: CHOLECALCIFEROL (D3) 1000 UNIT TABLET PO SCH (11:35)
[2022-01-12] MEDS: METOPROLOL TARTRATE 25MG TABLET PO SCH ×2 (11:35→21:26)
[2022-01-12] MEDS: ZINC SULFATE 220 MG ( 50 ) CAPSULE PO SCH (11:35)
[2022-01-12] MEDS: INSULIN GLARGINE 100 UNITS/ML SUBCUT SCH ×2 (11:36→11:41)
[2022-01-12] MEDS: INSULIN LISPRO 100 UNITS/ML SUBCUT SCH ×5 (11:41→18:00)
[2022-01-12] MEDS: SODIUM CHLORIDE 0.9% 1,000 ML IV SCH ×3 (12:29→22:35)
[2022-01-12] MEDS ORDERED: HEPARIN 1,000 UNITS PREMIX 0 ML IV ONE (14:22)
[2022-01-12 15:52] LABS: CREATINE KINASE MB FRACTION 13.9 ng/mL (0.5-3.6)
[2022-01-12] MEDS ORDERED: ENOXAPARIN 60MG/0.6ML SYR SUBCUT NR (17:00)
[2022-01-12 17:50] LABS: PROTHROMBIN TIME 11.2 sec (9.6-11.0)
[2022-01-12] MEDS: ATORVASTATIN CALCIUM 20MG TABLET PO SCH (21:25)
[2022-01-12] MEDS: ZOLPIDEM TARTRATE 5MG TABLET PO PRN (21:45)
[2022-01-13] VITALS (49 sets, daily range): BP systolic 99–186; BP diastolic 41–154
[2022-01-13 00:04] LABS: CREATINE KINASE 431 IU/L (26-192)
[2022-01-13 00:05] LABS: CREATINE KINASE MB FRACTION 26.4 ng/mL (0.5-3.6)
[2022-01-13] MEDS: BLOOD SUGAR DIAGNOSTIC STRIP TEST SCH ×4 (07:32→21:43)
[2022-01-13] MEDS: DEXTROSE 50% WATER 50ML SYRINGE IV PRN (07:39)
[2022-01-13] MEDS ORDERED: ENOXAPARIN 30MG/0.3ML SYR SUBCUT SCH (08:00)
[2022-01-13] MEDS: ENOXAPARIN 60MG/0.6ML SYR SUBCUT SCH (08:20)
[2022-01-13] MEDS: ASCORBIC ACID 500 MG TABLET PO SCH ×2 (08:21→21:23)
[2022-01-13] MEDS: CHOLECALCIFEROL (D3) 1000 UNIT TABLET PO SCH (08:21)
[2022-01-13] MEDS: METOPROLOL TARTRATE 25MG TABLET PO SCH (08:21)
[2022-01-13] MEDS: ASPIRIN 325MG EC TABLET PO SCH (08:22)
[2022-01-13] MEDS: ZINC SULFATE 220 MG ( 50 ) CAPSULE PO SCH (08:22)
[2022-01-13] MEDS: PANTOPRAZOLE SODIUM 40 MG/VIAL IV SCH (08:22)
[2022-01-13 08:54] LABS: HEMATOCRIT. 33.1 % (36.0-48.0); HEMOGLOBIN. 11.2 g/dL (12.0-16.0); MEAN CORPUSCULAR HEMOGLOBIN 28.2 pg (28.0-32.0); MEAN CORPUSCULAR VOLUME 83.1 fL (81.0-99.0); MEAN PLATELET VOLUME 8.9 fl (7.4-10.4); PLATELET 261 x1000/uL (130-400); RED BLOOD CELL COUNT 3.98 mill/uL (4.2-5.4); RED CELL DISTRIBUTION WIDTH 16.2 % (11.6-14.6)
[2022-01-13 09:03] LABS: CHLORIDE 120 mEq/L (98-107)
[2022-01-13 09:09] LABS: PHOSPHORUS 2.4 mg/dL (2.5-4.9)
[2022-01-13] MEDS ORDERED: POTASSIUM CHLORIDE INJ 40 MEQ in DEXT 5% WATER 250 ML IV ONE (09:45)
[2022-01-13] MEDS: KCL 20MEQ/100ML X 2 FOR TOTAL KCL 40MEQ/200ML IV SCH ×2 (10:27→13:30)
[2022-01-13] MEDS: SODIUM CHLORIDE 0.9% 1,000 ML IV SCH ×2 (10:28→20:35)
[2022-01-13] MEDS ORDERED: ALBUTEROL 6.7GM HFA INHALER ORI PRN (10:45)
[2022-01-13] MEDS: INSULIN LISPRO 100 UNITS/ML SUBCUT SCH ×5 (11:12→21:45)
[2022-01-13] MEDS: AMLODIPINE 5MG TABLET PO SCH ×2 (14:20→21:24)
[2022-01-13] MEDS ORDERED: HALOPERIDOL LACTATE 5MG/ML VIAL IM PRN (15:15)
[2022-01-13] MEDS: CLONIDINE 0.1MG TABLET PO PRN (20:18)
[2022-01-13 20:32] LABS: PLATELET ESTIMATE NORMAL
[2022-01-13] MEDS: GUAIFENESIN 600MG ER TABLET PO SCH (21:23)
[2022-01-13] MEDS: ATORVASTATIN CALCIUM 20MG TABLET PO SCH (21:23)
[2022-01-13] MEDS: ZOLPIDEM TARTRATE 5MG TABLET PO PRN (21:23)
[2022-01-13] MEDS: METOPROLOL TARTRATE 50MG TABLET PO SCH (21:24)
[2022-01-14] VITALS (38 sets, daily range): BP systolic 101–151; BP diastolic 41–108
[2022-01-14] MEDS: SODIUM CHLORIDE 0.9% 1,000 ML IV SCH ×3 (02:33→22:06)
[2022-01-14 05:03] LABS: BASOPHILS % 0.1 % (0.0-2.0); EOSINOPHILS % 0.1 % (0.0-5.0); HEMATOCRIT. 30.7 % (36.0-48.0); HEMOGLOBIN. 9.9 g/dL (12.0-16.0); LYMPHOCYTES % 11.6 % (20.0-50.0); MEAN CORPUSCULAR HEMOGLOBIN 28.3 pg (28.0-32.0); MEAN CORPUSCULAR VOLUME 88.1 fL (81.0-99.0); MONOCYTES % 5.1 % (2.0-8.0); NEUTROPHILS % 83.1 % (40.0-76.0); PLATELET 226 x1000/uL (130-400); RED BLOOD CELL COUNT 3.49 mill/uL (4.2-5.4); RED CELL DISTRIBUTION WIDTH 16.4 % (11.6-14.6)
[2022-01-14 05:32] LABS: CHLORIDE 116 mEq/L (98-107)
[2022-01-14] MEDS: BLOOD SUGAR DIAGNOSTIC STRIP TEST SCH ×4 (06:05→21:35)
[2022-01-14] MEDS: INSULIN LISPRO 100 UNITS/ML SUBCUT SCH ×7 (06:30→21:40)
[2022-01-14] MEDS: ZINC SULFATE 220 MG ( 50 ) CAPSULE PO SCH (08:18)
[2022-01-14] MEDS: ASCORBIC ACID 500 MG TABLET PO SCH ×2 (08:18→20:40)
[2022-01-14] MEDS: METOPROLOL TARTRATE 50MG TABLET PO SCH ×2 (08:18→20:39)
[2022-01-14] MEDS: ENOXAPARIN 60MG/0.6ML SYR SUBCUT SCH (08:18)
[2022-01-14] MEDS: AMLODIPINE 5MG TABLET PO SCH ×2 (08:18→20:40)
[2022-01-14] MEDS: LEVOFLOXACIN 250MG PREMIX 50 ML IV SCH (08:18)
[2022-01-14] MEDS: ASPIRIN 325MG EC TABLET PO SCH (08:18)
[2022-01-14] MEDS: CHOLECALCIFEROL (D3) 1000 UNIT TABLET PO SCH (08:18)
[2022-01-14] MEDS: PANTOPRAZOLE SODIUM 40 MG/VIAL IV SCH (08:21)
[2022-01-14] MEDS: GUAIFENESIN 600MG ER TABLET PO SCH ×2 (08:21→20:40)
[2022-01-14] MEDS: INSULIN GLARGINE 100 UNITS/ML SUBCUT SCH (10:00)
[2022-01-14] MEDS ORDERED: HALOPERIDOL LACTATE 5MG/ML VIAL IM PRN (10:15)
[2022-01-14] MEDS ORDERED: ASPIRIN 325MG TABLET PO NR (11:00)
[2022-01-14] MEDS ORDERED: LACTULOSE 20G/30ML UDC PO PRN (11:00)
[2022-01-14] MEDS: ASPIRIN 325MG TABLET PO SCH (11:41)
[2022-01-14] MEDS: QUETIAPINE FUMARATE 25MG TABLET PO SCH ×2 (11:41→20:40)
[2022-01-14] MEDS: ATORVASTATIN CALCIUM 20MG TABLET PO SCH (20:40)
[2022-01-15] VITALS: BP 135/50
[2022-01-15] MEDS: BLOOD SUGAR DIAGNOSTIC STRIP TEST SCH ×4 (05:52→20:44)
[2022-01-15] MEDS: INSULIN LISPRO 100 UNITS/ML SUBCUT SCH ×7 (05:58→20:44)
[2022-01-15 08:00] VITALS: BP 131/75
[2022-01-15] MEDS: PANTOPRAZOLE SODIUM 40 MG/VIAL IV SCH (08:54)
[2022-01-15] MEDS: AMLODIPINE 5MG TABLET PO SCH ×2 (08:55→20:36)
[2022-01-15] MEDS: ASCORBIC ACID 500 MG TABLET PO SCH ×2 (08:55→20:38)
[2022-01-15] MEDS: GUAIFENESIN 600MG ER TABLET PO SCH ×2 (08:55→20:38)
[2022-01-15] MEDS: ZINC SULFATE 220 MG ( 50 ) CAPSULE PO SCH (08:55)
[2022-01-15] MEDS: QUETIAPINE FUMARATE 25MG TABLET PO SCH ×2 (08:55→20:38)
[2022-01-15] MEDS: METOPROLOL TARTRATE 50MG TABLET PO SCH ×2 (08:55→20:36)
[2022-01-15] MEDS: CHOLECALCIFEROL (D3) 1000 UNIT TABLET PO SCH (08:55)
[2022-01-15] MEDS: INSULIN GLARGINE 100 UNITS/ML SUBCUT SCH (09:28)
[2022-01-15] MEDS: ASPIRIN 325MG TABLET PO SCH (11:09)
[2022-01-15] MEDS: DEXAMETHASONE 10 MG/ML VIAL IV SCH (11:09)
[2022-01-15] MEDS: ENOXAPARIN 60MG/0.6ML SYR SUBCUT SCH (11:10)
[2022-01-15 12:00] VITALS: BP 118/55
[2022-01-15] MEDS ORDERED: MAGNESIUM 1 G PREMIX 100 ML IV NR (12:00)
[2022-01-15 16:00] VITALS: BP 140/50
[2022-01-15] MEDS: SODIUM CHLORIDE 0.9% 1,000 ML IV SCH (16:43)
[2022-01-15 20:00] VITALS: BP 108/46
[2022-01-15] MEDS: ATORVASTATIN CALCIUM 20MG TABLET PO SCH (20:38)
[2022-01-16] VITALS: BP 117/60
[2022-01-16 04:00] VITALS: BP 135/71
[2022-01-16] MEDS: BLOOD SUGAR DIAGNOSTIC STRIP TEST SCH ×4 (06:15→21:00)
[2022-01-16 06:18] LABS: HEMATOCRIT. 28.8 % (36.0-48.0); HEMOGLOBIN. 9.7 g/dL (12.0-16.0); LYMPHOCYTES % 9.4 % (20.0-50.0); MEAN CORPUSCULAR HEMOGLOBIN 28.4 pg (28.0-32.0); MEAN CORPUSCULAR VOLUME 84.3 fL (81.0-99.0); MEAN PLATELET VOLUME 9.5 fl (7.4-10.4); MONOCYTES % 1.7 % (2.0-8.0); NEUTROPHILS % 88.9 % (40.0-76.0); PLATELET 195 x1000/uL (130-400); RED BLOOD CELL COUNT 3.41 mill/uL (4.2-5.4); RED CELL DISTRIBUTION WIDTH 16.5 % (11.6-14.6)
[2022-01-16] MEDS: INSULIN LISPRO 100 UNITS/ML SUBCUT SCH ×7 (06:33→21:00)
[2022-01-16 08:00] VITALS: BP 127/75
[2022-01-16] MEDS: LEVOFLOXACIN 250MG PREMIX 50 ML IV SCH (09:55)
[2022-01-16] MEDS: DEXAMETHASONE 10 MG/ML VIAL IV SCH (09:55)
[2022-01-16] MEDS: PANTOPRAZOLE SODIUM 40 MG/VIAL IV SCH (09:55)
[2022-01-16] MEDS: ASPIRIN 325MG TABLET PO SCH (09:56)
[2022-01-16] MEDS: ASCORBIC ACID 500 MG TABLET PO SCH ×2 (09:56→21:59)
[2022-01-16] MEDS: METOPROLOL TARTRATE 50MG TABLET PO SCH ×2 (09:56→21:59)
[2022-01-16] MEDS: GUAIFENESIN 600MG ER TABLET PO SCH ×2 (09:56→21:58)
[2022-01-16] MEDS: AMLODIPINE 5MG TABLET PO SCH ×2 (09:56→21:58)
[2022-01-16] MEDS: ENOXAPARIN 60MG/0.6ML SYR SUBCUT SCH (09:57)
[2022-01-16] MEDS: QUETIAPINE FUMARATE 25MG TABLET PO SCH ×2 (09:57→22:39)
[2022-01-16] MEDS: CHOLECALCIFEROL (D3) 1000 UNIT TABLET PO SCH (09:57)
[2022-01-16] MEDS: ZINC SULFATE 220 MG ( 50 ) CAPSULE PO SCH (09:57)
[2022-01-16] MEDS: INSULIN GLARGINE 100 UNITS/ML SUBCUT SCH (10:46)
[2022-01-16 12:00] VITALS: BP 136/52
[2022-01-16] MEDS: SODIUM CHLORIDE 0.9% 1,000 ML IV SCH ×2 (13:40→21:45)
[2022-01-16 16:00] VITALS: BP 118/50
[2022-01-16 20:00] VITALS: BP 126/62
[2022-01-16] MEDS: ATORVASTATIN CALCIUM 20MG TABLET PO SCH (21:58)
[2022-01-17] VITALS: BP 142/69
[2022-01-17 04:00] VITALS: BP 119/60
[2022-01-17] MEDS: BLOOD SUGAR DIAGNOSTIC STRIP TEST SCH ×4 (06:32→21:35)
[2022-01-17] MEDS: INSULIN LISPRO 100 UNITS/ML SUBCUT SCH ×7 (06:35→21:00)
[2022-01-17] MEDS: SODIUM CHLORIDE 0.9% 1,000 ML IV SCH ×2 (06:36→16:26)
[2022-01-17 06:45] LABS: BASOPHILS % 0.1 % (0.0-2.0); HEMATOCRIT. 26.7 % (36.0-48.0); HEMOGLOBIN. 8.8 g/dL (12.0-16.0); LYMPHOCYTES % 14.4 % (20.0-50.0); MEAN CORPUSCULAR HEMOGLOBIN 28.6 pg (28.0-32.0); MEAN CORPUSCULAR VOLUME 86.5 fL (81.0-99.0); MEAN PLATELET VOLUME 9.2 fl (7.4-10.4); MONOCYTES % 4.9 % (2.0-8.0); NEUTROPHILS % 80.6 % (40.0-76.0); PLATELET 202 x1000/uL (130-400); RED BLOOD CELL COUNT 3.08 mill/uL (4.2-5.4); RED CELL DISTRIBUTION WIDTH 16.5 % (11.6-14.6)
[2022-01-17] MEDS: DEXTROSE 50% WATER 50ML SYRINGE IV PRN (06:55)
[2022-01-17 08:00] VITALS: BP 133/56
[2022-01-17] MEDS: PANTOPRAZOLE SODIUM 40 MG/VIAL IV SCH (09:00)
[2022-01-17] MEDS: ENOXAPARIN 60MG/0.6ML SYR SUBCUT SCH (09:01)
[2022-01-17] MEDS: ASPIRIN 325MG TABLET PO SCH (09:01)
[2022-01-17] MEDS: AMLODIPINE 5MG TABLET PO SCH ×2 (09:01→21:34)
[2022-01-17] MEDS: ZINC SULFATE 220 MG ( 50 ) CAPSULE PO SCH (09:01)
[2022-01-17] MEDS: ASCORBIC ACID 500 MG TABLET PO SCH ×2 (09:01→21:34)
[2022-01-17] MEDS: CHOLECALCIFEROL (D3) 1000 UNIT TABLET PO SCH (09:02)
[2022-01-17] MEDS: QUETIAPINE FUMARATE 25MG TABLET PO SCH ×2 (09:02→21:34)
[2022-01-17] MEDS: GUAIFENESIN 600MG ER TABLET PO SCH ×2 (09:02→21:34)
[2022-01-17] MEDS: METOPROLOL TARTRATE 50MG TABLET PO SCH ×2 (09:02→21:34)
[2022-01-17] MEDS: INSULIN GLARGINE 100 UNITS/ML SUBCUT SCH (09:03)
[2022-01-17] MEDS: LEVOFLOXACIN 250MG PREMIX 50 ML IV SCH (09:03)
[2022-01-17 12:00] VITALS: BP 146/67
[2022-01-17 16:00] VITALS: BP 128/81
[2022-01-17 20:00] VITALS: BP 128/52
[2022-01-17] MEDS: ATORVASTATIN CALCIUM 20MG TABLET PO SCH (21:34)
[2022-01-18] VITALS: BP 105/58
[2022-01-18] MEDS: SODIUM CHLORIDE 0.9% 1,000 ML IV SCH ×3 (02:18→23:45)
[2022-01-18 04:00] VITALS: BP 146/55
[2022-01-18] MEDS: INSULIN LISPRO 100 UNITS/ML SUBCUT SCH ×7 (06:40→21:00)
[2022-01-18] MEDS: BLOOD SUGAR DIAGNOSTIC STRIP TEST SCH ×4 (06:47→21:00)
[2022-01-18 07:30] LABS: BASOPHILS % 0.1 % (0.0-2.0); EOSINOPHILS % 0.5 % (0.0-5.0); HEMATOCRIT. 31.6 % (36.0-48.0); HEMOGLOBIN. 10.1 g/dL (12.0-16.0); LYMPHOCYTES % 18.2 % (20.0-50.0); MEAN CORPUSCULAR VOLUME 87.9 fL (81.0-99.0); MONOCYTES % 9.6 % (2.0-8.0); NEUTROPHILS % 71.6 % (40.0-76.0); PLATELET 245 x1000/uL (130-400); RED CELL DISTRIBUTION WIDTH 16.4 % (11.6-14.6)
[2022-01-18 08:00] VITALS: BP 136/58
[2022-01-18] MEDS: METOPROLOL TARTRATE 50MG TABLET PO SCH ×2 (09:07→22:11)
[2022-01-18] MEDS: QUETIAPINE FUMARATE 25MG TABLET PO SCH ×2 (09:07→22:11)
[2022-01-18] MEDS: PANTOPRAZOLE SODIUM 40 MG/VIAL IV SCH (09:07)
[2022-01-18] MEDS: INSULIN GLARGINE 100 UNITS/ML SUBCUT SCH (09:08)
[2022-01-18] MEDS: CHOLECALCIFEROL (D3) 1000 UNIT TABLET PO SCH (09:08)
[2022-01-18] MEDS: ZINC SULFATE 220 MG ( 50 ) CAPSULE PO SCH (09:08)
[2022-01-18] MEDS: AMLODIPINE 5MG TABLET PO SCH ×2 (09:08→22:12)
[2022-01-18] MEDS: ASCORBIC ACID 500 MG TABLET PO SCH ×2 (09:08→21:00)
[2022-01-18] MEDS: GUAIFENESIN 600MG ER TABLET PO SCH ×2 (09:08→22:12)
[2022-01-18 12:00] VITALS: BP 132/59
[2022-01-18] MEDS: LEVOFLOXACIN 250MG PREMIX 50 ML IV SCH (13:21)
[2022-01-18 16:00] VITALS: BP 128/53
[2022-01-18 20:40] VITALS: BP 163/71
[2022-01-18] MEDS: ATORVASTATIN CALCIUM 20MG TABLET PO SCH (22:11)
[2022-01-19 00:32] VITALS: BP 158/78
[2022-01-19 04:00] VITALS: BP 179/86
[2022-01-19] MEDS: CLONIDINE 0.1MG TABLET PO PRN (05:01)
[2022-01-19] MEDS: BLOOD SUGAR DIAGNOSTIC STRIP TEST SCH (06:32)
[2022-01-19] MEDS: INSULIN LISPRO 100 UNITS/ML SUBCUT SCH ×2 (06:32→07:08)
[2022-01-19] MEDS: CHOLECALCIFEROL (D3) 1000 UNIT TABLET PO SCH (09:00)
[2022-01-19] MEDS: INSULIN GLARGINE 100 UNITS/ML SUBCUT SCH (10:00)
[2022-01-19] MEDS: QUETIAPINE FUMARATE 25MG TABLET PO SCH (10:39)
[2022-01-19] MEDS: ASCORBIC ACID 500 MG TABLET PO SCH (10:39)
[2022-01-19] MEDS: PANTOPRAZOLE SODIUM 40 MG/VIAL IV SCH (10:39)
[2022-01-19] MEDS: SODIUM CHLORIDE 0.9% 1,000 ML IV SCH (10:39)
[2022-01-19] MEDS: ZINC SULFATE 220 MG ( 50 ) CAPSULE PO SCH (10:39)
[2022-01-19] MEDS: GUAIFENESIN 600MG ER TABLET PO SCH (10:40)
[2022-01-19] MEDS: METOPROLOL TARTRATE 50MG TABLET PO SCH (10:40)
[2022-01-19] MEDS: AMLODIPINE 5MG TABLET PO SCH (10:40)
== END 2022-01-19 16:50 | disposition left against medical advice (07) | DRG 871 ==
LOC: ER 05:06 → 5EST 06:49 → ENRESERV 07:38 → MICUNO 18:00 → 7EST 01-14 19:20
PROVIDERS: ADMIT Internal Medicine; ATTEND Internal Medicine
DX: A41.89 Other specified sepsis (principal); E11.00 Type 2 diabetes mellitus with hyperosmolarity without nonketotic hyperglycemic-hyperosmolar coma (NKHHC); I21.09 ST elevation (STEMI) myocardial infarction involving other coronary artery of anterior wall; N17.0 Acute kidney failure with tubular necrosis; J96.00 Acute respiratory failure, unspecified whether with hypoxia or hypercapnia; G92.8 Other toxic encephalopathy; J12.82 Pneumonia due to coronavirus disease 2019; U07.1 COVID-19; N39.0 Urinary tract infection, site not specified; J44.0 Chronic obstructive pulmonary disease with (acute) lower respiratory infection; D84.9 Immunodeficiency, unspecified; E87.1 Hypo-osmolality and hyponatremia; I82.411 Acute embolism and thrombosis of right femoral vein; J20.8 Acute bronchitis due to other specified organisms; E78.5 Hyperlipidemia, unspecified; I25.5 Ischemic cardiomyopathy; D64.9 Anemia, unspecified; E11.51 Type 2 diabetes mellitus with diabetic peripheral angiopathy without gangrene; E11.65 Type 2 diabetes mellitus with hyperglycemia; E78.00 Pure hypercholesterolemia, unspecified; E83.52 Hypercalcemia; E87.5 Hyperkalemia; F03.90 Unspecified dementia, unspecified severity, without behavioral disturbance, psychotic disturbance, mood disturbance, and anxiety; H44.521 Atrophy of globe, right eye; I10 Essential (primary) hypertension; I25.10 Atherosclerotic heart disease of native coronary artery without angina pectoris; L89.156 Pressure-induced deep tissue damage of sacral region; Z88.0 Allergy status to penicillin; Z79.82 Long term (current) use of aspirin; Z79.84 Long term (current) use of oral hypoglycemic drugs; Z79.4 Long term (current) use of insulin; Z79.899 Other long term (current) drug therapy; Z89.432 Acquired absence of left foot
CPT/HCPCS: 36415; 36600; 71045; 80048; 80053; 80061; 80305; 80320; 81003; 82010; 82375; 82550; 82553; 82607; 82746; 82805; 82962; 83036; 83540; 83550; 83605; 83615; 83735; 83880; 83930; 84100; 84145; 84439; 84443; 84484; 85025; 87426; 93005; 93306; 93970; 94644; 99291; A6261; C9113; J1100; J1630; J1644; J1650; J1815; J1956; J2405; J3475; J3480; J3490; J7030; A4315; G0480